=== PATIENT | female | born 1945 | race Caucasian/White ===

== ENCOUNTER 2024-08-28 08:29 | Inpatient (IN) | payer MEDICARE, BC ==
[~2024-08-28] VITALS: Ht 154.9 cm; Wt 54.0 kg
[2024-08-28 09:13] LABS: BASOPHILS % (AUTO) 0.3 % (0.0-2.0); EOSINOPHILS % (AUTO) 0.2 % (0.0-6.0); HEMATOCRIT 37 % (33-45); HEMOGLOBIN 12.3 g/dL (11.5-14.8); LYMPHOCYTES # (AUTO) 1.2 K/uL (0.8-4.8); LYMPHOCYTES % (AUTO) 10.2 % (20.0-44.0); MEAN CORPUSCULAR HEMOGLOBIN 30 PG (26.0-33.0); MEAN CORPUSCULAR HGB CONC 33 g/dl (31.0-36.0); MEAN CORPUSCULAR VOLUME 91 fL (82-100); MONOCYTES # (AUTO) 0.7 K/uL (0.1-1.30); MONOCYTES % (AUTO) 5.4 % (2.0-12.0); NEUTROPHILS # (AUTO) 10.1 K/uL (1.8-8.9); NEUTROPHILS % (AUTO) 83.9 % (43.0-81.0); PLATELET COUNT (AUTO) 277 K/uL (150-450); RED BLOOD CELL COUNT(AUTO) 4.09 MIL/uL (4.0-5.2); RED CELL DISTRIBUTION WIDTH 13.6 % (11.5-15.0); WHITE BLOOD COUNT (AUTO) 12.1 K/uL (4.3-11.0)
[2024-08-28 09:21] LABS: CARBON DIOXIDE 23 mmol/L (21-32); CHLORIDE 112 mmol/L (98-107); CREATININE 0.8 mg/dL (0.6-1.3); GLUCOSE 126 mg/dL (74-106); POTASSIUM 3.7 mmol/L (3.5-5.1); SODIUM SERUM 146 mmol/L (136-145); UREA NITROGEN, BLOOD 17 mg/dL (7-18)
[2024-08-28 09:27] LABS: ALANINE AMINOTRANSFERASE 21 U/L (12-78); ALCOHOL, BLOOD < 3 mg/dL (0-10); ALKALINE PHOSPHATASE 125 U/L (46-116); ASPARTATE AMINOTRANSFERASE 20 U/L (15-37); BILIRUBIN,DIRECT 0.1 mg/dL (0.0-0.2); BILIRUBIN,TOTAL 0.4 mg/dL (0.2-1.0)
[2024-08-28 09:30] LABS: ACETAMINOPHEN <10 ug/ml (10-30); SALICYLATE 0.9 mg/dL (2.8-20.0)
[2024-08-28 11:36] LABS: APPEARANCE,URINE CLEAR (CLEAR); BILIRUBIN,URINE NEGATIVE (NEGATIVE); BLOOD, URINE NEGATIVE Ery/uL (NEGATIVE); COLOR,URINE YELLOW (YELLOW); KETONES,URINE NEGATIVE (NEGATIVE); LEUKOCYTE ESTERASE ,URINE NEGATIVE (NEGATIVE); NITRITE, URINE NEGATIVE (NEGATIVE); PH,URINE 5.5 (5.0-8.0); PROTEIN,URINE NEGATIVE (NEGATIVE); UGLUCOSE NEGATIVE (NEGATIVE); UROBILINOGEN,URINE 0.2 EU/dL (0.2)
[2024-08-28 11:47] LABS: AMPHETAMINE, URINE NEGATIVE (NEGATIVE); BENZODIAZEPINE, URINE NEGATIVE (NEGATIVE); COCCAINE, URINE NEGATIVE (NEGATIVE); OPIATE, URINE NEGATIVE (NEGATIVE); PHENCYCLIDINE SCREEN,URINE NEGATIVE (NEGATIVE)
[2024-08-28 11:54] LABS: BARBITURATE, URINE POSITIVE (NEGATIVE)
[2024-08-28 11:55] LABS: CANNABINOID, URINE POSITIVE (NEGATIVE)
[2024-08-28 13:05] VITALS: O2SAT 97
[2024-08-28] MEDS ORDERED: MAG HYDROX/AL HYDROX/SIMETH 30 ML UDC PO PRN (16:00)
[2024-08-28] MEDS ORDERED: MAGNESIUM HYDROXIDE 30 ML UDC PO PRN (16:00)
[2024-08-28] MEDS ORDERED: OLME20TA23 PO (16:52)
[2024-08-28] MEDS ORDERED: METO25TA4 PO (16:52)
[2024-08-28] MEDS ORDERED: ATOR20TA PO (16:52)
[2024-08-28] MEDS ORDERED: AMIO200T5 PO (16:52)
[2024-08-28] MEDS ORDERED: MEMA5TAB PO (16:52)
[2024-08-28] MEDS ORDERED: LEVO25TA82 PO (16:52)
[2024-08-28] MEDS ORDERED: CLON1TAB12 PO (16:52)
[2024-08-28] MEDS ORDERED: METH-649 PO (16:52)
[2024-08-28] MEDS ORDERED: MELO-107 PO (16:52)
[2024-08-28] MEDS ORDERED: DONE10TA11 PO (16:52)
[2024-08-28] MEDS: BLOOD SUGAR DIAGNOSTIC 1 EACH STRIP IN ONE (17:15)
[2024-08-28] MEDS ORDERED: METHOCARBAMOL (750MG) 750 MG TABLET PO PRN (20:00)
[2024-08-28 20:17] VITALS: BP 126/77; TEMP 98.4; O2SAT 95
[2024-08-28] MEDS: LOSARTAN POTASSIUM 25 MG TABLET PO SCH (20:19)
[2024-08-28] MEDS: ATORVASTATIN 10 MG TABLET PO SCH (21:25)
[2024-08-28] MEDS: DONEPEZIL 5 MG TABLET PO SCH (21:25)
[2024-08-28] MEDS: ACETAMINOPHEN 325 MG TABLET PO PRN (22:07)
[2024-08-29 07:37] LABS: ALBUMIN 3.5 g/dL (3.4-5.0); BILIRUBIN,TOTAL 0.9 mg/dL (0.2-1.0); CALCIUM, SERUM 8.7 mg/dL (8.5-10.1); CREATININE 0.8 mg/dL (0.6-1.3); POTASSIUM 3.9 mmol/L (3.5-5.1); TOTAL PROTEIN, SERUM 6.3 g/dL (6.4-8.2)
[2024-08-29 08:00] VITALS: BP 129/86; TEMP 98.6; O2SAT 98
[2024-08-29] MEDS: METOPROLOL SUCCINATE 25 MG TAB.SR.24H PO SCH (08:27)
[2024-08-29] MEDS: MEMANTINE HCL 5 MG TABLET PO SCH ×2 (08:28→21:38)
[2024-08-29] MEDS: AMIODARONE HCL 200 MG TABLET PO SCH (08:28)
[2024-08-29] MEDS: LEVOTHYROXINE SODIUM 25 MCG TABLET PO SCH (08:28)
[2024-08-29] MEDS ORDERED: clonazePAM 0.5 MG TABLET PO PRN (12:00)
[2024-08-29 14:40] LABS: CREATININE 0.8 mg/dL (0.6-1.3)
[2024-08-29 16:00] VITALS: BP 115/68; TEMP 97.7; O2SAT 97
[2024-08-29] MEDS: DIVALPROEX SODIUM 125 MG CAP.SPRINK PO SCH (17:45)
[2024-08-29 20:00] VITALS: BP 133/78; TEMP 98.3; O2SAT 99
[2024-08-30 08:00] VITALS: BP 100/60; TEMP 98; O2SAT 96
[2024-08-30 09:18] LABS: THYROID STIMULATING HORMONE 1.56 uIU/mL (0.358-3.74)
[2024-08-30 16:00] VITALS: BP 157/94; TEMP 98; O2SAT 94
[2024-08-30 18:52] LABS: CHOLESTEROL 202 mg/dL (<200); HDL CHOLESTEROL 68 mg/dL (40-60); LDL 111 mg/dL (0-99); TRIGLYCERIDES 91 mg/dL (30-150)
[2024-08-30 20:27] VITALS: BP 132/87; TEMP 98.1; O2SAT 96
[2024-08-30] MEDS: QUETIAPINE FUMARATE 25 MG TABLET PO SCH (21:37)
[2024-08-31] MEDS ORDERED: Z GUARD REMEDY 4 OZ OINT TP PRN (06:00)
[2024-08-31 08:00] VITALS: BP 124/83; TEMP 98; O2SAT 96
[2024-08-31 16:00] VITALS: BP 127/69; TEMP 98.6; O2SAT 98
[2024-08-31] MEDS: QUETIAPINE FUMARATE 25 MG TABLET PO SCH (22:17)
[2024-09-01 08:00] VITALS: BP 135/90; TEMP 97.9; O2SAT 95
[2024-09-01] MEDS: ENSURE ENLIVE CHOC 237 ML CAN PO SCH (08:52)
[2024-09-01 12:08] LABS: FOLIC ACID 12.4 ng/mL (>3.0)
[2024-09-01] MEDS: DIVALPROEX SODIUM 125 MG CAP.SPRINK PO SCH (14:00)
[2024-09-01 16:00] VITALS: BP 111/84; TEMP 98; O2SAT 97
[2024-09-01 21:06] VITALS: BP 119/76; TEMP 98; O2SAT 96
[2024-09-02 08:00] VITALS: BP 140/68; TEMP 97.8; O2SAT 96
[2024-09-02 16:00] VITALS: BP 127/71; TEMP 97.9; O2SAT 95
[2024-09-02 20:10] VITALS: BP 136/79; TEMP 98.3; O2SAT 95
[2024-09-03 08:00] VITALS: BP 125/70; TEMP 97.9; O2SAT 93
[2024-09-03] MEDS: METHOCARBAMOL (750MG) 750 MG TABLET PO SCH (08:33)
[2024-09-03 15:07] VITALS: BP 101/72; TEMP 97.7; O2SAT 74
[2024-09-04 08:00] VITALS: BP 160/95; TEMP 98.7; O2SAT 98
[2024-09-04 16:00] VITALS: BP 127/92; TEMP 98.1; O2SAT 98
[2024-09-04 20:00] VITALS: BP 106/64; TEMP 98.3; O2SAT 97
[2024-09-04] MEDS: OLANZAPINE 2.5 MG TABLET PO SCH (21:15)
[2024-09-05 08:00] VITALS: BP 128/70; TEMP 98.1; O2SAT 97
[2024-09-05] MEDS: DIVALPROEX SODIUM 125 MG CAP.SPRINK PO SCH (13:09)
[2024-09-05 16:00] VITALS: BP 112/85; TEMP 98.1; O2SAT 100
[2024-09-05 20:00] VITALS: BP 132/73; TEMP 98.3; O2SAT 98
[2024-09-06 08:00] VITALS: BP 139/83; TEMP 97.5; O2SAT 99
[2024-09-06] MEDS: MELOXICAM 7.5 MG TABLET PO PRN (08:48)
[2024-09-06 16:00] VITALS: BP 108/94; TEMP 97.8; O2SAT 98
[2024-09-06 20:00] VITALS: BP 139/89; TEMP 98; O2SAT 99
[2024-09-07] MEDS: MIRTAZAPINE 15 MG TABLET PO SCH (00:19)
[2024-09-07 08:00] VITALS: BP_SYST 129; BP_SYST 133; BP_DIAS 80; BP_DIAS 90; TEMP 97.5; O2SAT 97; O2SAT 99
[2024-09-07 15:06] LABS: VITAMIN B1 THIAMINE,WB 110.9 nmol/L (66.5-200.0)
[2024-09-07 16:00] VITALS: BP 125/78; TEMP 98.1; O2SAT 96
[2024-09-07 19:52] VITALS: BP 129/101; TEMP 97.9; O2SAT 95
[2024-09-07] MEDS: OLANZAPINE 2.5 MG TABLET PO SCH (21:39)
[2024-09-08 08:00] VITALS: BP 145/81; TEMP 98.9; O2SAT 96
[2024-09-08 16:00] VITALS: BP 127/74; TEMP 97.9; O2SAT 94
[2024-09-08 22:15] VITALS: BP 128/92; TEMP 97.9; O2SAT 95
[2024-09-09 08:00] VITALS: BP 147/82; TEMP 97.9; O2SAT 97
[2024-09-09 15:07] VITALS: BP 100/65; TEMP 99; O2SAT 98
[2024-09-09 20:37] VITALS: BP 139/83; TEMP 98.6; O2SAT 96
[2024-09-10 08:00] VITALS: BP 139/97; TEMP 98.6; O2SAT 96
[2024-09-10 16:00] VITALS: BP 117/72; TEMP 97.9; O2SAT 96
[2024-09-10 22:15] VITALS: BP 125/68; TEMP 98.4; O2SAT 96
[2024-09-11 08:00] VITALS: BP 142/88; TEMP 98.6; O2SAT 97
[2024-09-11 16:00] VITALS: BP 128/88; TEMP 97.9; O2SAT 97
[2024-09-11 22:38] VITALS: BP 150/76; TEMP 97.8; O2SAT 97
[2024-09-12 08:00] VITALS: BP 125/97; TEMP 98; O2SAT 97
[2024-09-12 08:30] VITALS: BP 125/97
== END 2024-09-12 14:00 | DRG 885 ==
LOC: ER 08:32 → GPS 14:55
PROVIDERS: ADMIT Psychiatry & Neurology Psychosomatic Medicine; ATTEND Nurse Practitioner Acute Care
DX: F39 Unspecified mood [affective] disorder (principal); G92.8 Other toxic encephalopathy; F03.92 Unspecified dementia, unspecified severity, with psychotic disturbance; F03.93 Unspecified dementia, unspecified severity, with mood disturbance; F03.94 Unspecified dementia, unspecified severity, with anxiety; F03.918 Unspecified dementia, unspecified severity, with other behavioral disturbance; F29 Unspecified psychosis not due to a substance or known physiological condition; I10 Essential (primary) hypertension; E78.5 Hyperlipidemia, unspecified; F41.9 Anxiety disorder, unspecified; E03.9 Hypothyroidism, unspecified; K21.9 Gastro-esophageal reflux disease without esophagitis; Z79.899 Other long term (current) drug therapy; Z20.822 Contact with and (suspected) exposure to COVID-19; Z73.6 Limitation of activities due to disability; I49.9 Cardiac arrhythmia, unspecified; R07.9 Chest pain, unspecified; F31.9 Bipolar disorder, unspecified
CPT/HCPCS: 36415; 70450-TC; 71045-TC; 80048-TC; 80053-TC; 80061-TC; 80076-TC; 80164-TC; 82565-TC; 82607-TC; 82962-TC; 83921; 84425; 84443-TC; 85025-TC; 93307-TC; 97110-TC; 97116-TC; 97530-TC; G0480